=== PATIENT | male | born 1945 | race Caucasian/White ===

== ENCOUNTER → 2016-11-07 | Outpatient (CLI) | payer MEDICARE, BC ==
[~2016-11-07] MED LIST: ALPRAZOLAM PO; AMBIEN PO; ASPIRIN EC81 M1 PO; ASPIRIN81 M1 PO; AVAPRO300 M1 PO; BENTYL20 M1 PO; CIPRO PO; CLARITIN D PO; DICLOFENAC PO; DIOVAN PO; FLAGYL PO; FLEXERIL PO; HYDROCODON-ACE1 EAC9 PO; LEVOXYL150 MCG PO; LEXAPRO PO; LIPITOR PO; LORTAB 10-5001 EACH PO; METFORMIN HCL500 M1 PO; MULTIPLE VITAMI1 T11; OXYCODON HCL-1 UDTA1 PO; PAIN MED; PERCOCET 5-3251 TAB PO; PHENERGAN25 MG PO; SYNTHROID PO; ULTRAM PO; ZOFRAN ODT4 MG/UDTAB PO; ZYRTEC10 M2 PO
--- NOTE | ~2016-11-07 | BD1 ---
[facility] A Service of [facility] RADIOLOGY TEXT RESULTS PATIENT: HOLA BAE LOCATION: [facility] : 47 UNIT #: [id number] AGE: [address]: Kodi Siegel MD SEX: M ORDER DR: [id number] [facility] [address] [place], [place] [address] [id number] O MR#: [id number] Acc #: [id number] NAME: HOLA BAE. : 1945 SEX: M STUDY DATE/TIME: 11/07/2016 10:50 UNIT: [facility] ROOM: STUDY DESCRIPTION: BD Dexa Bone Dens 1+ Site Attending Physician: Kodi Siegel M.D. Ordering Physician: Kodi Siegel M.D. Primary Care Physician: Kodi Siegel M.D. MEDICAL IMAGING REPORT This report is preliminary unless electronic signature is present EXAM DXA scan, 11/07/2016 HISTORY Arthritis and diabetes. Osteopenia. Metal in lower back. FINDINGS Bone mineral density in the left femoral neck was 0.723 g/cm2 which is 1.5 standard deviations below the mean when compared to the young adult reference population which is characteristic of osteopenia. This is 0.3 standard deviations below the mean when compared to the age-matched population. Bone mineral density in the left forearm was 0.614 g/cm2 which is 1.2 standard deviations below the mean when compared to the young adult reference population which is characteristic of osteopenia. This is 0 standard deviations from the mean when compared to the age-matched population. IMPRESSION Bone mineral density in the left hip and left forearm characteristic of osteopenia. Dictated by... Saman Johnson M.D. THIS IS AN ELECTRONICALLY VERIFIED REPORT Saman Johnson M.D. at 11/08/2016 2:18 PM [place] TD: 11/07/2016 16:22 JOB #: [id number] [facility] A Service of [facility] RADIOLOGY TEXT RESULTS PATIENT: HOLA BAE [id number] : 47 UNIT #: [id number] AGE: [address]: Kodi Siegel MD SEX: M ORDER DR: MEDICAL IMAGING REPORT Page 1 of 1 COPY
== END | disposition home or self-care (01) ==
LOC: CWCC 09:56
DX: M81.0 Age-related osteoporosis without current pathological fracture (principal)
CPT/HCPCS: 77080